=== PATIENT | female | born 1985 | race Caucasian/White ===

== ENCOUNTER 2017-10-21 10:11 | Emergency (ER) | payer BC, OTHER ==
[2017-10-21] MEDS ORDERED: Acetaminophen TAB* 325 MG PO ONE (12:40)
--- NOTE | 2017-10-21 12:47 | UC ---
Bite Injury/Animal HPI - HPI Summary HPI Summary: Pt presents with cat bite to right hand. Pt states it was her cat, indoor only, animal vacc UTD. Pt states was startled by dog and she tried to help. 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 No analgesia taken. Not immunocompromised. Tday UTD. Pt is . RHD. Pt's medications reviewed this visit - History of Current Complaint Chief Complaint: UCBiteInjury Stated Complaint: CAT BITE Time Seen by Provider: 10/21/17 11:57 Hx Obtained From: Patient Hx Last Menstrual Period: december 2016 Severity Currently: None Severity Initially: Mild Pain Intensity: 0 Onset/Duration: Sudden Onset Type of Bite: Pet Has Animal Been Immunized?: Yes Character: Puncture, Abrasion/Laceration Aggravating Factor(s): Nothing Alleviating Factor(s): Nothing Associated Signs And Symptoms: Positive: Negative - Allergies/Home Medications Allergies/Adverse Reactions: Allergies Allergy/AdvReac Type Severity Reaction Status Date / Time No Known Allergies Allergy Verified 10/21/17 11:42 Home Medications: Home Medications Vit37/Iron/Folic Acid [Prenata] 1 chw PO DAILY 10/21/17 [History Confirmed 10/21/17] PMH/Surg Hx/FS Hx/Imm Hx Previously Healthy: Yes - Surgical History Surgical History: Yes Surgery Procedure, Year, and Place: 09/25/17 - Family History Known Family History: Positive: None - Social History Occupation: Works From/At Home Lives: With Family Alcohol Use: Occasionally Substance Use Type: None Smoking Status (MU): Never Smoked Tobacco - Immunization History Most Recent Tetanus Shot: july 2017 Review of Systems Constitutional: Negative Skin: Other - abraison, puncture Is Patient Immunocompromised?: No All Other Systems Reviewed And Are Negative: Yes Physical Exam Triage Information Reviewed: Yes Appearance: Well-Appearing, No Pain Distress, Well-Nourished Vital Signs: Initial Vital Signs Temp 98 F 10/21/17 11:40 Pulse 77 10/21/17 11:40 Resp 16 10/21/17 11:40 BP 104/67 10/21/17 11:40 Pulse Ox 98 10/21/17 11:40 Vital Signs Reviewed: Yes Eyes: Positive: Conjunctiva Clear ENT: Positive: Hearing grossly normal Neck: Positive: Supple Respiratory: Positive: No respiratory distress, No accessory muscle use Musculoskeletal: Positive: Other: - + abduct, adduct, opponens, flex/ext thumb right hand + flex/ext wrist, ankle +pronate/supinate Neurological: Positive: Other: - + sensation throughout hand Psychological Exam: Normal Skin: Positive: Other - Pt with small puncture wound x 2 and 3cm abraison right dorsum distal forarm medial to radial styloid No drainage, bleeding Bite Injury Course/Dx - Course Course Of Treatment: P with domestic cat bite to dominate right dorsum wrist. Full ROM. tdap UTD. cat vaccinated. bire form complete. wound care. Augmentin. thumb spike. elevate. return precaution. APAP. wound care - Differential Dx/Diagnosis Provider Diagnoses: cat bite Discharge - Sign-Out/Discharge Documenting (check all that apply): Discharge - Discharge Plan Condition: Stable Disposition: HOME Prescriptions: Amoxicillin/Clavulanate TAB* [Augmentin TAB 875*] 875 mg PO BID #14 tab Patient Education Materials: Animal Bite (ED) Referrals: Haley Thomas MD [Primary Care Provider] - Additional Instructions: - soak you hand for 15 minute, 2-3 times a day - pat dry - cover with a thin layer of antibiotic ointment (neosporin, polysporin) and bandage - take antibiotics as prescribed until gone - wear splint as much as possible for the first 3 days, then as needed for support - monitor your wound for signs of infection - reddness, red streaking, odor, drainage- call you doctor or go to the emergency department with any concerns - Okay to take Tylenol every 6 hours for pain. Okay to take Motrin as well -[facility] will get a copy of the bite report form. They will likely call you to follow-up. Call your doctor, return here or go to the emergency department with questions or concerns - Billing Disposition and Condition Condition: STABLE Disposition: HOME
== END 2017-10-21 12:55 | disposition home or self-care (01) ==
LOC: UCCORT 10:11
DX: S61.451A Open bite of right hand, initial encounter (principal); W55.01XA Bitten by cat, initial encounter; Y92.9 Unspecified place or not applicable
CPT/HCPCS: 99203; A9270-GY; G0463

== ENCOUNTER 2019-05-12 19:00 | Emergency (ER) | payer OTHER ==
[2019-05-12 19:36] VITALS: BP 101/60
--- NOTE | 2019-05-12 20:04 | UC ---
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 experiencing "gas pains," was using the toilet when she felt "whoozie" and then woke up on the floor with a "bump on" her forehead. Pt. was helped to her bed, felt nauseous and continued to have gas pain. Pt took a position on her bed which relieved her gas pains, pt then had diarrhea after. This evening pt. has forehead pain, right neck pain and right rib pain. Pleasant 33 yo female c/o bump on head, head / neck pain. [place] from [place] of [place] a work trip. This morning she awoke approx 06:30am, with gas pain. Went to the restroom to alleviate gas pain, in the process thereof, she passed out and hit head. Does not have recollection of this event. But did wake up and took a nap. Subsequently awoke and went to the airport, reports that the flight was unremarkable. She noticed the large bump on her head this afternoon, prompting visit here. No vis / aud changes. Some neckache, nonspecific. No cp / sob / palpitations. No arthralgia other than above No GI / c/o's at this time. - History of Current Complaint Chief Complaint: UCHeadInjury Stated Complaint: BUMP ON HEAD, NECK PAIN Time Seen by Provider: 05/12/19 19:53 Hx Obtained From: Patient Hx Last Menstrual Period: mirena Onset/Duration: Still Present Pain Intensity: 3 - Allergy/Home Medications Allergies/Adverse Reactions: Allergies Allergy/AdvReac Type Severity Reaction Status Date / Time No Known Allergies Allergy Verified 05/12/19 19:26 Home Medications: Home Medications Ibuprofen TAB* [Advil TAB*] 400 mg PO Q6H PRN 05/12/19 [History Confirmed ] Levonorgestrel (Iud) [Mirena IUD] 20 mcg IU DAILY 05/12/19 [History Confirmed ] Simethicone [Gas-X Extra Strength] 125 mg PO DAILY PRN 05/12/19 [History Confirmed 05/12/19] PMH/Surg Hx/FS Hx/Imm Hx Previously Healthy: Yes - Surgical History Surgical History: Yes Surgery Procedure, Year, and Place: 09/25/17 - Family History Known Family History: Positive: None - Social History Alcohol Use: Occasionally Substance Use Type: Marijuana Smoking Status (MU): Never Smoked Tobacco - Immunization History Most Recent Tetanus Shot: july 2017 Review of Systems All Other Systems Reviewed And Are Negative: Yes Constitutional: Positive: Other - see hpi Skin: Positive: Bruising, Other - see hpi Eyes: Positive: Negative ENT: Positive: Other - see hpi Respiratory: Positive: Negative Cardiovascular: Positive: Negative Gastrointestinal: Positive: Negative Genitourinary: Positive: Negative Motor: Positive: Negative Neurovascular: Positive: Negative Musculoskeletal: Positive: Other: - see hpi Neurological: Positive: Other - see hpi Psychological: Positive: Other Is Patient Immunocompromised?: No Physical Exam Triage Information Reviewed: Yes Appearance: Well-Appearing - sitting up. looks tired, but nad., Well-Nourished Vital Signs: Initial Vital Signs Temp 98.6 F 05/12/19 19:28 Pulse 64 05/12/19 19:28 Resp 12 05/12/19 19:28 BP 101/60 05/12/19 19:28 Pulse Ox 99 05/12/19 19:28 Vital Signs Reviewed: Yes Eye Exam: Normal - perrla, eomi, sw / cp. direct fundoscopy (nondil) grossly nad ENT: Positive: Pharynx normal, TM dull - dull au, intact, not red Neck exam: Other - mild tender R lat neck, without point bony tenderness. Neck: Positive: Supple, No Lymphadenopathy Respiratory Exam: Normal Respiratory: Positive: Chest non-tender, Lungs clear, Normal breath sounds, No accessory muscle use Cardiovascular Exam: Normal Cardiovascular: Positive: RRR, No Murmur, Pulses Normal, Brisk Capillary Refill Abdominal Exam: Normal Abdomen Description: Positive: Nontender Musculoskeletal Exam: Normal - gait steady, moves well x 4 ext's Neurological Exam: Normal - cn's intact moves well Psychological Exam: Normal - conversing easily and appropriately Skin Exam: Other - no visible or reported rahs nondiaphoretic mid-forehead eccymosis and swelling approx 7.5cm L x approx 3.5cm W. No laceration. + tender. Course/Dx - Course Course Of Treatment: D/w pt, Recommend imaging here at [facility]. However, during the course of the encounter, Ms. Garcia became aware that [facility] does not participate with her medical insurance. As such, she declines further tx and ancillaries. She would like to go to the [facility]. She will drive pov. Questions as posed answered to the best of my ability. I spoke with YAZMIN Ramirez (occupational analyst, [employer] SALESPERSON/PA/doc not immediately available for telephone). - Diagnoses Provider Diagnosis: Head injury Discharge ED - Sign-Out/Discharge Documenting (check all that apply): Patient Departure All imaging exams completed and their final reports reviewed: No Studies - Discharge Plan Condition: Stable Disposition: HOME-RECOMMEND TO ED Patient Education Materials: Head Injury (ED) Referrals: Haley Thomas MD [Primary Care Provider] - Additional Instructions: Please go to the Emergency Department. Stop and call 911 if problems en route. - Billing Disposition and Condition Condition: STABLE Disposition: Home-Recommend to ED
== END 2019-05-12 21:01 | disposition home health service (06) ==
LOC: UCCORT 19:00
DX: S09.90XA Unspecified injury of head, initial encounter (principal); R14.1 Gas pain; X58.XXXA Exposure to other specified factors, initial encounter; Y92.89 Other specified places as the place of occurrence of the external cause
CPT/HCPCS: 99212; G0463